=== PATIENT | female | born 1955 | race Caucasian/White ===

== ENCOUNTER → 2017-07-22 19:22 | Outpatient (CLI) | payer OTHER ==
[2014-05-23 12:15] VITALS: BMI 39.5
[~2017-07-22 19:22] MED LIST: ACETAMINOPHEN500 M1 PO; CELEBREX 100 M100 MG PO; CENESTIN0.3 MG PO; DEXILANT60 MG PO; PROBIOTIC PO; PROZAC10 MG PO; TOPROL XL50 MG PO; VASOTEC10 MG PO
== END | disposition home or self-care (01) ==
LOC: D.MAMMO 15:30
DX: Z12.31 Encounter for screening mammogram for malignant neoplasm of breast (principal)

== ENCOUNTER → 2017-08-30 20:18 | Outpatient (CLI) | payer OTHER ==
[2014-05-23 12:15] VITALS: BMI 39.5
== END | disposition home or self-care (01) ==
LOC: D.MAMMO 15:00
DX: R92.8 Other abnormal and inconclusive findings on diagnostic imaging of breast (principal)

== ENCOUNTER 2017-10-14 12:24 | Day surgery (SDC) | payer OTHER ==
[~2017-10-14] VITALS: Ht 160 cm; Wt 70.0 kg
--- NOTE | ~2017-10-14 | OP ---
PATIENT NAME: DELMIS PORTER MEDICAL RECORD: [id number] :55 LOCATION:[facility] ADMISSION DATE: SURGEON: HUMBERTO VIDAL MD DATE OF OPERATION: 10/14/2017 PROCEDURE: EGD with biopsy and esophageal balloon dilatation. INDICATIONS: Ms. Porter is a very pleasant 62-year-old woman with a history of diverticulosis and colon polyps. She had a gastric bypass approximately a year ago, has lost 75 pounds. She has developed melenic stools and symptoms of dysphagia, feeling as though food "stays" in her high epigastric region. She stopped taking Celebrex several weeks ago, has been taking some of her 's Dexilant as needed. She presents for outpatient EGD. PREMEDICATIONS: Total IV anesthesia (propofol 200 mg). INSTRUMENT: Olympus video gastroscope and Olympus esophageal balloon dilator 54-60 Latvian. PROCEDURE AND FINDINGS: After receiving informed consent, Ms. Porter' posterior pharynx was anesthetized with Cetacaine spray, placed in left lateral decubitus position. She was sedated as per anesthesia. After achieving an adequate level of sedation, gastroscope was introduced per orally and advanced to the gastric pouch without difficulty. At the GE junction, was a wide open nonobstructive Schatzki's ring. The GE junction was located at approximately 36 cm. Small gastric pouch was noted with few palmira visible towards the distal aspect of the gastric pouch. Several biopsies were obtained from the gastric pouch to rule out H. pylori. At the gastric small bowel anastomosis, was a white based 0.75-cm ulcer that was friable and bled easily when the scope passed by. The observed jejunal mucosa was without erythema or ulcers. The gastroscope was then withdrawn to the stomach pouch. Esophageal balloon dilator was passed through the gastroscope and then positioned midway across the distal esophagus, insulated to a 60-Latvian size, and then deflated with good results. Ms. Porter tolerated the procedure well. No immediate complications. ASSESSMENT: 1. Nonobstructive Schatzki's ring, status post esophageal balloon dilatation. 2. Status post gastric bypass. 3. Friable ulcer at the gastric jejunal anastomosis. RECOMMENDATIONS: 1. Avoid any nonsteroidal anti-inflammatory drugs and RUBIO-2 inhibitors. 2. Dexilant 60 mg p.o. daily. 3. Sucralfate 1 gram p.o. t.i.d. for one month. 4. Followup EGD in 3 months to document healing of anastomotic ulcer. TRANSINT:[id number] Voice Confirmation ID: [id number] DOCUMENT ID: [id number] OPERATIVE REPORT [id number] DELMIS PORTER TERRI MD at 1018 CC: SHALA CALERO MD and ZACH CHEW [id number] DICTATION DATE: 10/14/17 165 PROFESSOR OF SPANISH: 10/14/172005 [facility] 10/14/17 [id number] [place] [address]
[2017-10-14 12:46] LABS: BASOPHILS 0.3 % (0-2); EOSINOPHILS 0.6 % (0-7); HEMATOCRIT 35.4 % (36.0-48.0); HEMOGLOBIN 11.5 g/dL (12-16); IMMATURE GRANULOCYTES 0.2 % (0-5); MCH 27.1 pg (26.0-34.0); MCHC 32.5 g/dL (31.0-37.0); MCV 83.5 fL (80.0-100.0); MEAN PLATELET VOLUME 9.5 fL (7.4-10.4); MONOCYTES 10.3 % (2-11); NEUTROPHILS 60.6 % (40-80); RBC 4.24 10x6/uL (4.00-5.40); RDW 12.2 % (11.5-14.5); WBC 6.2 10x3/uL (4.8-10.8)
[2017-10-14 12:58] LABS: PLATELET COUNT 181 10x3/uL (130-400)
[2017-10-14 12:59] LABS: CALC OSMOLALITY 282 mosm/kg (275-300); CALCIUM 9.2 mg/dL (8.5-10.1); CARBON DIOXIDE 32.1 mmol/L (21.0-32.0); CHLORIDE - SERUM 105 mmol/L (98-107); CREATININE - SERUM 0.7 mg/dL (0.6-1.3); GLUCOSE 91 mg/dL (74-106); POTASSIUM - SERUM 4.5 mmol/L (3.5-5.1); SODIUM 142 mmol/L (136-145); UREA NITROGEN 13 mg/dL (7-18); eGFR NON AFRICAN AMERICAN 90 mL/min (90-120)
[2017-10-14 14:57] VITALS: BP 124/68; Ht 160 cm; Wt 70.0 kg
== END 2017-10-14 18:00 | disposition home or self-care (01) ==
LOC: D.OPS 12:24
PROVIDERS: Internal Medicine Gastroenterology
DX: K22.2 Esophageal obstruction (principal); K28.9 Gastrojejunal ulcer, unspecified as acute or chronic, without hemorrhage or perforation; Z98.84 Bariatric surgery status; K29.50 Unspecified chronic gastritis without bleeding; Z01.812 Encounter for preprocedural laboratory examination

== ENCOUNTER 2018-08-25 11:40 | Day surgery (SDC) | payer OTHER ==
[~2018-08-25] VITALS: Ht 160 cm; Wt 78.6 kg
[2018-08-25 12:25] LABS: HEMATOCRIT 36.3 % (36.0-48.0); HEMOGLOBIN 11.5 g/dL (12-16); MCH 23.6 pg (26.0-34.0); MCHC 31.7 g/dL (31.0-37.0); MCV 74.4 fL (80.0-100.0); MEAN PLATELET VOLUME 9.7 fL (7.4-10.4); RBC 4.88 10x6/uL (4.00-5.40); RDW 14.4 % (11.5-14.5); WBC 6.3 10x3/uL (4.8-10.8)
[2018-08-25] MEDS ORDERED: MERIBIN5 MG PO (13:05)
[2018-08-25] MEDS ORDERED: CENTRUM SILVER1 EAC3 PO (13:06)
[2018-08-25] MEDS ORDERED: VITAMIN B-121000 MCG PO (13:07)
[2018-08-25 13:26] VITALS: BP 117/70; Ht 160 cm; Wt 78.6 kg
--- NOTE | 2018-08-29 11:11 | OP ---
PATIENT NAME: DELMIS PORTER MEDICAL RECORD: [id number] :55 LOCATION:[facility] ADMISSION DATE: SURGEON: HUMBERTO VIDAL MD DATE OF OPERATION: 08/25/2018 PROCEDURE: EGD with biopsy and esophageal balloon dilatation. 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 INDICATIONS: Ms. Porter is a delightful 63-year-old woman with a history of bariatric surgery (gastric bypass) and peptic ulcer disease. She has had symptoms of dysphagia intermittently with nausea and vomiting and epigastric pain discomfort. Her last EGD was in October 2017 with finding showing a nonobstructing Schatzki's ring, which was dilated. Gastric anatomy changes of a gastric bypass, friable ulcer at the gastrojejunal anastomosis. Gastric biopsies showed no evidence of Helicobacter pylori. She presents for outpatient EGD. PREMEDICATIONS: Total IV anesthesia, propofol 200 mg. INSTRUMENT: Olympus video gastroscope and esophageal balloon dilator 54-60 [place]ese. PROCEDURE AND FINDINGS: After receiving informed consent, Ms. Porter posterior pharynx was anesthetized with Cetacaine spray, placed in left lateral decubitus position and sedated as per anesthesia. After achieving an adequate level of sedation, gastroscope was introduced per orally and advanced to the jejunum without difficulty. The esophageal mucosa was without erythema or ulcers. At the GE junction, was a nonobstructive Schatzki's ring. The gastric pouch was remarkable for an erosion at the distal aspect and some mild erythema at the gastrojejunal anastomosis region. No ulcers were seen. The anastomosis was wide open and the gastroscope was introduced through into the jejunum. Biopsies were taken from the jejunum to rule out celiac disease also and gastric pouch biopsies were obtained. Then, esophageal balloon dilator was introduced through the scope and the balloon was positioned midway across the distal esophagus, insufflated to a 60-[place] size, held in place on the appropriate PSI for 30 seconds, then deflated with good results. Balloon was withdrawn and then biopsies were taken from the mid and distal esophagus. Ms. Porter tolerated the procedure well, no immediate complications. ASSESSMENT: 1. Erosive gastritis in the distal aspect of the gastric pouch. 2. Schatzki's ring status post esophageal balloon dilatation. RECOMMENDATIONS: 1. Continue Dexilant 60 mg daily. 2. Add sucralfate 1 gram p.o. b.i.d. 3. Colonoscopy as scheduled. TRANSINT:[id number] Voice Confirmation ID: [id number] DOCUMENT ID: [id number] OPERATIVE REPORT [id number] DELMIS PORTER TERRI MD at 1111 CC: ZACH CHEW [id number] DICTATION DATE: 08/25/18 1403 HAULAGE ENGINE OPERATOR: 08/25/18 1520 [facility] 08/25/[address] [address]
== END 2018-08-25 15:20 | disposition home or self-care (01) ==
LOC: D.OPS 11:40
PROVIDERS: Anesthesiology; ATTEND Internal Medicine Gastroenterology
DX: K29.00 Acute gastritis without bleeding (principal); K22.2 Esophageal obstruction; Z98.84 Bariatric surgery status; Z01.812 Encounter for preprocedural laboratory examination

== ENCOUNTER 2019-05-23 19:30 | Outpatient (CLI) | payer OTHER ==
[2018-08-25 13:26] VITALS: BMI 30.7
[~2019-05-23 19:30] MED LIST changes: +CENTRUM SILVER1 EAC3 PO; +MERIBIN5 MG PO; +VITAMIN B-121000 MCG PO
== END 2019-05-23 23:59 | disposition home or self-care (01) ==
LOC: D.MAMMO 19:30
PROVIDERS: ATTEND Family Medicine
DX: Z12.31 Encounter for screening mammogram for malignant neoplasm of breast (principal)

== ENCOUNTER 2019-07-31 10:00 | Outpatient (CLI) | payer OTHER ==
[2018-08-25 13:26] VITALS: BMI 30.7
== END 2019-07-31 11:01 | disposition home or self-care (01) ==
LOC: D.MAMMO 10:00
PROVIDERS: ATTEND Family Medicine
DX: R92.8 Other abnormal and inconclusive findings on diagnostic imaging of breast (principal)